=== PATIENT | female | born 1950 ===

== ENCOUNTER 2018-05-25 16:47 | Emergency (ER) | payer OTHER ==
[~2018-05-25] VITALS: Ht 154.9 cm; Wt 97.5 kg
[~2018-05-25 16:47] MED LIST: AVAPRO150 MG; CARTIA XT180 MG; CEFADROXIL500 MG PO; COZAAR PO; Cardizem 120MG TAB PO; DEPAKOTE ER500 MG; Depakote PO; EFFEXOR50 MG; ESTAZOLAM2 MG; HUMULIN 70/30 V10 ML; KLONOPIN1 MG/TAB; LASIX20 MG; NEURONTIN600 MG; Neurontin PO; PERCOCET 10-3251 TAB; PERCOCET 5/321 UDTAB PO; PRILOSEC20 MG; RIFADIN PO; RIFAMPIN300 MG PO; SEROQUEL XR200 MG; SINGULAIR 10MG10 MG; VANCOCIN HCL 5 MG/ML REDILUIDO IV; XARELTO 10MG PO; XARELTO10 MG PO; XARELTO15 MG PO; Xopenex 0.63 MG/3 ML SOLUTION IH; ZOCOR20 MG
[2018-05-25] MEDS ORDERED: PREDNISONE20 MG PO (20:37)
[2018-05-25] MEDS ORDERED: TESSALON PERLE100 M1 PO (20:37)
[2018-05-25] MEDS ORDERED: ALBUTEROL2.5 MG/3 M IH (20:37)
[2018-05-25] MEDS ORDERED: PROMETH-CODEIN 65 ML PO (20:37)
== END 2018-05-25 21:20 | disposition home or self-care (01) ==
LOC: ER 16:47
DX: J06.9 Acute upper respiratory infection, unspecified (principal); R53.1 Weakness